=== PATIENT | male | born 1995 | race Caucasian/White ===

== ENCOUNTER 2021-02-11 21:48 | Emergency (ER) | payer SELFPAY ==
[~2021-02-11] VITALS: Ht 175.3 cm; Wt 69.0 kg
[2021-02-11] MEDS ORDERED: KETOROLAC 30MG/ML VIAL IV STA (22:28)
[2021-02-11] MEDS ORDERED: ONDANSETRON HCL 4MG/2ML INJ IV STA (22:28)
[2021-02-11] MEDS ORDERED: SODIUM CHLORIDE 0.9% 1,000 ML IV ONE (22:30)
[2021-02-11 23:08] LABS: HEMATOCRIT. 49.4 % (42.0-52.0); HEMOGLOBIN. 16.5 g/dL (14.0-18.0); MEAN CORPUSCULAR HEMOGLOBIN 29.3 pg (28.0-32.0); MEAN CORPUSCULAR VOLUME 87.4 fL (80.0-94.0); MEAN PLATELET VOLUME 9.3 fl (7.4-10.4); PLATELET 273 x1000/uL (130-400); RED BLOOD CELL COUNT 5.65 mill/uL (4.7-6.1); RED CELL DISTRIBUTION WIDTH 13.4 % (11.6-14.6)
[2021-02-11 23:14] LABS: CHLORIDE 104 mEq/L (98-107)
[2021-02-11 23:18] LABS: ETHANOL BLOOD < 10 mg/dL; INR 1.1; PROTHROMBIN TIME 11.6 sec (9.6-11.0)
[2021-02-11 23:26] LABS: PLATELET ESTIMATE NORMAL
[2021-02-12] MEDS ORDERED: METOCLOPRAMIDE HCL 10MG/2ML VIAL IV ONE (01:30)
[2021-02-12] MEDS ORDERED: SODIUM CHLORIDE 0.9% 1,000 ML IV ONE (01:30)
[2021-02-12] MEDS ORDERED: ONDA4TAB5 MT (01:49)
[2021-02-12 03:19] VITALS: BP 106/48
== END 2021-02-12 03:22 | disposition home or self-care (01) ==
LOC: ER 21:48
DX: R10.9 Unspecified abdominal pain (principal); R11.2 Nausea with vomiting, unspecified
CPT/HCPCS: 36415; 74176; 80053; 80320; 83690; 85025; 85610; 93005; 96361; 96374; 96375; 99285; J1885; J2405; J2765; J7030; Z7610; G0480